=== PATIENT | female | born 2000 | race African-American/Black ===

== ENCOUNTER 2021-09-15 07:53 | Emergency (ER) | payer OTHER ==
[~2021-09-15] VITALS: Ht 172.7 cm; Wt 70.0 kg
[2021-09-15 07:54] VITALS: BP 145/78
[2021-09-15] MEDS ORDERED: IBUPROFEN 600 MG TABLET PO ONE (08:15)
== END 2021-09-15 08:33 | disposition home or self-care (01) ==
LOC: EMS 07:59
DX: T22.021 Burn of unspecified degree of right elbow (principal); M77.11 Lateral epicondylitis, right elbow; X08.8XXD Exposure to other specified smoke, fire and flames, subsequent encounter
CPT/HCPCS: 99282; Z7502; Z7610